=== PATIENT | female | born 1960 | race Hispanic/Latino ===

== ENCOUNTER 2024-06-11 07:41 | Outpatient (CLI) | payer OTHER ==
[2024-06-11] MEDS ORDERED: Iopamidol 370 76% 100 ML VIAL ONE (10:06)
== END 2024-06-11 07:42 | disposition home or self-care (01) ==
LOC: BICCT 07:41
PROVIDERS: ATTEND Nurse Practitioner Family
DX: R10.2 Pelvic and perineal pain (principal); R93.2 Abnormal findings on diagnostic imaging of liver and biliary tract
CPT/HCPCS: 74178; Q9967